=== PATIENT | female | born 1945 | race Caucasian/White ===

== ENCOUNTER → 2016-04-08 | Outpatient (CLI) | payer OTHER ==
[2016-04-07 14:40] LABS: ABSOLUTE NRBC COUNT 0.14 10^3/uL (0-0.01); HEMATOCRIT 25.3 % (38.0-47.0); HEMOGLOBIN 7.7 g/dL (12.6-16.3); LIPEMIA HEMOLYSIS FLAG 80 (0-99); MEAN CELL HEMOGLOBIN 31.2 pg (27.9-34.1); MEAN CELL HEMOGLOBIN CONC. 30.4 g/dL (32.4-36.7); MEAN CELL VOLUME 102.4 fL (81.5-99.8); PLATELET CLUMPS FLAG 0 (0-99); PLATELET COUNT 58 10^3/uL (150-400); RED BLOOD CELL COUNT 2.47 10^6/uL (4.18-5.33); RED CELL DISTRIBUTION WIDTH 20.9 % (11.5-15.2)
[2016-04-07 14:41] LABS: NRBC-AUTO% 7.3 % (0.0-0.2)
[2016-04-07 15:31] LABS: ALANINE AMINOTRANSFERASE 69 IU/L (9-52); ALBUMIN 3.6 g/dL (3.5-5.0); ALKALINE PHOSPHATASE 70 IU/L (38-126); ANION GAP 9 mEq/L (8-16); ASPARTATE AMINOTRANSFERASE 51 IU/L (14-46); BILIRUBIN,TOTAL 1.1 mg/dL (0.1-1.4); CALCIUM 9.1 mg/dL (8.5-10.4); CARBON DIOXIDE 24 mEq/l (22-31); CHLORIDE 106 mEq/L (97-110); CREATININE 0.8 mg/dL (0.6-1.0); GLOMERULAR FILTRATION RATE > 60; GLUCOSE 259 mg/dL (70-100); POTASSIUM 4.6 mEq/L (3.5-5.2); SODIUM 139 mEq/L (134-144); TOTAL PROTEIN 6.1 g/dL (6.3-8.2)
[~2016-04-08] MED LIST: ACETAMINOPHEN 325 MG TAB PO ONE; diphenhydrAMINE 25 MG CAP PO ONE
== END ==
LOC: RMCCLAB 04-07 06:13 → EDSTATUS 11:17 → FOBOP 11:18
PROVIDERS: ATTEND Internal Medicine Hematology & Oncology
PROC: 30233N1 Transfusion of Nonautologous Red Blood Cells into Peripheral Vein, Percutaneous Approach (ICD-10-PCS; principal; 2016-04-08)
DX: D46.9 Myelodysplastic syndrome, unspecified (principal); Z88.2 Allergy status to sulfonamides
CPT/HCPCS: 36430; P9040

== ENCOUNTER → 2016-04-10 | Outpatient (CLI) | payer OTHER | LOC: FIMAGING 11:16 | PROVIDERS: ATTEND Physician Assistant | DX: M79.604 Pain in right leg (principal); M79.89 Other specified soft tissue disorders; D46.A Refractory cytopenia with multilineage dysplasia ==

== ENCOUNTER → 2016-05-05 | Outpatient (CLI) | payer OTHER ==
[~2016-05-05] MED LIST changes: -diphenhydrAMINE 25 MG CAP PO ONE
[2016-05-05 10:35] VITALS: BP 102/52; PULSE 76; RESP 16; TEMP 98.3; O2SAT 98
== END | disposition still patient (30) ==
LOC: F3EOP 09:40 → FOBOP 09:40 → FIMAGING 09:45 → F3EOP 09:48 → FIMAGING 09:48 → EDSTATUS 05-11 17:39
PROVIDERS: ATTEND Internal Medicine Hematology & Oncology
PROC: 30233N1 Transfusion of Nonautologous Red Blood Cells into Peripheral Vein, Percutaneous Approach (ICD-10-PCS; principal; 2016-05-05)
DX: D46.9 Myelodysplastic syndrome, unspecified (principal); D64.9 Anemia, unspecified
CPT/HCPCS: 36430; J1200; P9040

== ENCOUNTER → 2016-05-12 | Outpatient (CLI) | payer OTHER | LOC: BHFA 09:30 | PROVIDERS: ATTEND Internal Medicine Interventional Cardiology | DX: I48.91 Unspecified atrial fibrillation (principal); R06.02 Shortness of breath; I50.9 Heart failure, unspecified | CPT/HCPCS: 78452; 93017; A9500; J2785 ==

== ENCOUNTER 2016-06-02 09:45 | Outpatient (CLI) | payer OTHER ==
[2016-06-02] MEDS ORDERED: ACETAMINOPHEN 325 MG TAB PO ONE (10:00)
[2016-06-02] MEDS ORDERED: diphenhydrAMINE 25 MG CAP PO ONE (10:00)
== END 2016-06-02 15:15 | disposition home or self-care (01) ==
LOC: FSGY 09:45 → FOBOP 09:45
PROVIDERS: ATTEND Internal Medicine Hematology & Oncology
PROC: 30233N1 Transfusion of Nonautologous Red Blood Cells into Peripheral Vein, Percutaneous Approach (ICD-10-PCS; principal; 2016-06-02)
DX: Z51.89 Encounter for other specified aftercare (principal); D46.A Refractory cytopenia with multilineage dysplasia
CPT/HCPCS: 36430; P9040

== ENCOUNTER → 2016-06-15 | Outpatient (CLI) | payer OTHER | LOC: FIMAGING 13:53 | PROVIDERS: ATTEND Nurse Practitioner | DX: Z45.2 Encounter for adjustment and management of vascular access device (principal); D46.A Refractory cytopenia with multilineage dysplasia ==

== ENCOUNTER → 2016-06-16 | Day surgery (SDC) | payer OTHER ==
[~2016-06-16] MED LIST changes: -ACETAMINOPHEN 325 MG TAB PO ONE; +IOPAMIDOL (ISOVUE-300) 100 ML BTL IV ONE
== END | disposition home or self-care (01) ==
LOC: FIMAGING 14:09
PROVIDERS: ATTEND Internal Medicine Hematology & Oncology
PROC: 0JP Subcutaneous Tissue and Fascia, Removal (ICD-10-PCS; principal; 2016-06-16)
PROC: 02HV33Z Insertion of Infusion Device into Superior Vena Cava, Percutaneous Approach (ICD-10-PCS; principal; 2016-06-16)
DX: T82.598A Other mechanical complication of other cardiac and vascular devices and implants, initial encounter (principal); D46.9 Myelodysplastic syndrome, unspecified; D46.A Refractory cytopenia with multilineage dysplasia
CPT/HCPCS: 36005; 36584; 75820; 77001; C1751; C1758; C1769; Q9967

== ENCOUNTER → 2016-07-01 | Outpatient (CLI) | payer OTHER | LOC: BHFA 10:00 | PROVIDERS: ATTEND Internal Medicine | DX: R06.00 Dyspnea, unspecified (principal); I25.10 Atherosclerotic heart disease of native coronary artery without angina pectoris ==

== ENCOUNTER → 2016-07-15 | Outpatient (CLI) | payer OTHER ==
[~2016-07-15] MED LIST changes: +ACETAMINOPHEN 325 MG TAB PO ONE; -IOPAMIDOL (ISOVUE-300) 100 ML BTL IV ONE
[2016-07-15 09:57] VITALS: BP 110/59; PULSE 79; RESP 20; TEMP 97.3; O2SAT 94
== END ==
LOC: FOBOP 09:22
PROVIDERS: ATTEND Internal Medicine Hematology & Oncology
PROC: 30233N1 Transfusion of Nonautologous Red Blood Cells into Peripheral Vein, Percutaneous Approach (ICD-10-PCS; principal; 2016-07-15)
DX: D46.9 Myelodysplastic syndrome, unspecified (principal); Z88.2 Allergy status to sulfonamides
CPT/HCPCS: 36430; J1200; J1642; P9040

== ENCOUNTER → 2016-07-21 | Outpatient (CLI) | payer OTHER | LOC: FIMAGING 15:32 | PROVIDERS: ATTEND Nurse Practitioner | DX: I87.8 Other specified disorders of veins (principal); E86.0 Dehydration ==

== ENCOUNTER → 2016-07-31 | Outpatient (CLI) | payer OTHER | LOC: BHFA 10:30 | PROVIDERS: ATTEND Internal Medicine Cardiovascular Disease | DX: I50.9 Heart failure, unspecified (principal); I44.7 Left bundle-branch block, unspecified; R06.02 Shortness of breath ==